=== PATIENT | female | born 1935 | race Caucasian/White ===

== ENCOUNTER 2017-02-17 09:25 | Day surgery (SDC) | payer OTHER ==
[2017-02-17 10:14] VITALS: BMI 20.7
[2017-02-17] MEDS ORDERED: Propofol 10 mg/ml Inj (20 ML) ONE (11:01)
[2017-02-17] MEDS ORDERED: Lidocaine Hydrochloride 5 ML INJ ONE (11:01)
[2017-02-17] MEDS ORDERED: Lactated Ringer's 1,000 ML IV ONE (11:20)
[2017-02-17 12:29] VITALS: TEMP 97.8
[2017-02-17 13:55] VITALS: BP 169/68; PULSE 68; RESP 16; O2SAT 99
== END 2017-02-17 13:11 | disposition home or self-care (01) ==
LOC: C.ENDO 09:25
PROVIDERS: ATTEND Internal Medicine Gastroenterology
DX: D50.9 Iron deficiency anemia, unspecified (principal); R19.7 Diarrhea, unspecified; K29.70 Gastritis, unspecified, without bleeding; K44.9 Diaphragmatic hernia without obstruction or gangrene; K31.89 Other diseases of stomach and duodenum; I10 Essential (primary) hypertension; E11.9 Type 2 diabetes mellitus without complications
CPT/HCPCS: 43239; 45380; 88305; 88313; 88342; J2704; J7120